=== PATIENT | female | born 1995 | race African-American/Black ===

== ENCOUNTER 2017-12-02 21:10 | Emergency (ER) | payer OTHER ==
[~2017-12-02] VITALS: Ht 162.6 cm; Wt 54.5 kg
[2017-12-02 21:12] VITALS: BP 116/72
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
[2017-12-02] MEDS ORDERED: NAPROXEN 500 MG TABLET PO ONE (22:30)
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
== END 2017-12-02 22:16 | disposition home or self-care (01) ==
LOC: ER 21:10
DX: S49.92XA Unspecified injury of left shoulder and upper arm, initial encounter (principal); V43.52XA Car driver injured in collision with other type car in traffic accident, initial encounter; Y93.I9 Activity, other involving external motion; Y99.8 Other external cause status; Y92.488 Other paved roadways as the place of occurrence of the external cause
CPT/HCPCS: 73010; 73030; 99284

== ENCOUNTER 2017-12-16 13:43 | Emergency (ER) | payer OTHER ==
[~2017-12-16] VITALS: Ht 162.6 cm; Wt 54.4 kg
[2017-12-16] MEDS ORDERED: LIDOCAINE 2% VISCOUS 15 ML SOLUTION. SWSW ONE (14:45)
--- NOTE | 2017-12-16 15:12 | PHYS DOC ---
Past History Past Medical History: Other Past Surgical History: Other Smoking: Non-smoker Alcohol Use: Occasionally Drug Use: None Adult General Chief Complaint Chief Complaint: SWALLOWED FORIEGN BODY HPI HPI Patient is a [22] year old [female who presents with [planing of foreign body sensation. Patient states she ate fish one week ago and she thinks it was some fish bone stuck in her throat since then she has had pain that did not get better. Patient also complaining of pain in upper chest and esophagus area with sensation. Patient denies nausea and vomiting, fever and chills, shortness of breath. Review of Systems Review of Systems Constitutional: Denies fever or chills [] Eyes: Denies change in visual acuity, redness, or eye pain [] HENT: Denies nasal congestion or sore throat [] Respiratory: Denies cough or shortness of breath [] Cardiovascular: No additional information not addressed in HPI [] GI: Denies abdominal pain, nausea, vomiting, bloody stools or diarrhea [] : Denies dysuria or hematuria [] Musculoskeletal: Denies back pain or joint pain [] Integument: Denies rash or skin lesions [] Neurologic: Denies headache, focal weakness or sensory changes [] Endocrine: Denies polyuria or polydipsia [] All other systems were reviewed and found to be within normal limits, except as documented in this note. Current Medications Current Medications Current Medications Medications (Trade) Dose Ordered Sig/[facility] Start Time Stop Time Status Last Admin Dose Admin Lidocaine HCl 5 ml 1X ONCE 12/16/17 14:45 12/16/17 14:46 DC Allergies Allergies Allergies Coded Allergies Type Severity Reaction Last Updated Verified No Known Drug Allergies 12/16/17 No Physical Exam Physical Exam Constitutional: Well developed, well nourished, no acute distress, non-toxic appearance. [] HENT: Normocephalic, atraumatic, no foreign body in throat, oropharynx moist, no oral exudates, nose normal. [] Eyes: PERRLA, EOMI, conjunctiva normal, no discharge. [] Neck: Normal range of motion, no tenderness, supple, no stridor. [] Cardiovascular:Heart rate regular rhythm, no murmur [] Lungs & Thorax: Bilateral breath sounds clear to auscultation [] Abdomen: Bowel sounds normal, soft, no tenderness, no masses, no pulsatile masses. [] Skin: Warm, dry, no erythema, no rash. [] Back: No tenderness, no CVA tenderness. [] Extremities: No tenderness, no cyanosis, no clubbing, ROM intact, no edema. [] Neurologic: Alert and oriented X 3, normal motor function, normal sensory function, no focal deficits noted. [] Psychologic: Affect normal, judgement normal, mood normal. [] EKG EKG [] Radiology/Procedures Radiology/Procedures [][address] [address] IMAGING REPORT Signed PATIENT: NICO RAMIREZ ACCOUNT: [id number] : 1995 LOCATION: ER AGE: 22 SEX: F EXAM STATUS: PRE ER ORD. PHYSICIAN: MARIAMA MALDONADO MD REASON: possible foreign body PROCEDURE: NECK SOFT TISSUE Two-view soft tissue neck dated 12/16/2017. No comparison available. CLINICAL INDICATION: Pain after swallowing fishbone. FINDINGS: AP lateral views obtained. No prevertebral soft tissue swelling or soft tissue gas. Epiglottis and aryepiglottic folds are within normal limits. No subglottic airway narrowing. No foreign body identified. No acute bony abnormality. IMPRESSION: No acute findings. Electronically signed by: Bon Hernandez MD (12/16/2017 3:21 PM) [facility] DICTATED AND SIGNED BY: BON HERNANDEZ MD DATE: 12/16/17 1520 CC: AMADA MUHAMMAD; MARIAMA MALDONADO MD ~ Course & Med Decision Making Course & Med Decision Making Pertinent Imaging studies reviewed. (See chart for details) discharge: I've spoken with the patient and/or caregivers. I've explained the patient's condition, diagnosis and treatment plan based on information available to me at this time. I've answered the patient's and/or caregivers questions and addressed any concerns. The patient and/or caregivers have a good understanding the patient's diagnosis, condition and treatment plan as can be expected at this point. Vital signs have been stabilized. The patient's condition is stable for discharge from the emergency department. The patient will pursue further outpatient evaluation with her primary care provider or other designated consulting physician as outlined in the discharge instructions. Patient and/or caregivers are agreeable to this plan of care and follow-up instructions have been explained in detail. The patient and/or caregivers have received these instructions in written format and expressed understanding of these discharge instructions. The patient and her caregivers are aware that if any significant change in condition or worsening of symptoms should prompt him to immediately return to this of the closest emergency department. If an emergent department is not readily available I would encourage him to call 911. [] Dragon Disclaimer Dragon Disclaimer This electronic medical record was generated, in whole or in part, using a voice recognition dictation system. Departure Departure: Impression: Primary Impression: Sensation of foreign body in esophagus Disposition: HOME, SELF-CARE (at 1543) Condition: STABLE Referrals: AMADA MUHAMMAD (PCP) Patient Instructions: Swallowed Foreign Body, Adult Additional Instructions: Drink plenty of liquids Follow-up with your primary care physician in 3-5 days Return to ER if not getting better Scripts [viscous lidocaine 2%] No Conflict Check 5 ML PO QID PRN for PAIN, #120 ML Prov: MARIAMA MALDONADO MD 12/16/17 MARIAMA MALDONADO MD Dec 16, 2017 15:12
--- NOTE | 2017-12-16 15:25 | RAD ---
Two-view soft tissue neck dated 12/16/2017. No comparison available. CLINICAL INDICATION: Pain after swallowing fishbone. FINDINGS: AP lateral views obtained. No prevertebral soft tissue swelling or soft tissue gas. Epiglottis and aryepiglottic folds are within normal limits. No subglottic airway narrowing. No foreign body identified. No acute bony abnormality. IMPRESSION: No acute findings. Electronically signed by: Bon Hernandez MD (12/16/2017 3:21 PM) [facility]
[2017-12-16] MEDS ORDERED: viscous lidocaine 2% PO (15:46)
[2017-12-16 15:57] VITALS: BP 104/70
== END 2017-12-16 15:57 | disposition home or self-care (01) ==
LOC: ER 13:43
DX: R19.8 Other specified symptoms and signs involving the digestive system and abdomen (principal); R07.89 Other chest pain
CPT/HCPCS: 70360; 99284